=== PATIENT | male | born 1970 | race Caucasian/White ===

== ENCOUNTER 2023-04-15 08:23 | Emergency (ER) | payer OTHER ==
[2023-04-15] MEDS ORDERED: Iopamidol 370 76% 100 ML VIAL ONE (15:52)
== END 2023-04-15 10:51 | disposition home or self-care (01) ==
LOC: MADERS 08:23
DX: G89.18 Other acute postprocedural pain (principal); R14.0 Abdominal distension (gaseous); F17.210 Nicotine dependence, cigarettes, uncomplicated
CPT/HCPCS: 74177; Q9967

== ENCOUNTER 2024-05-05 09:52 | Emergency (ER) | payer OTHER | END 2024-05-05 11:51 | disposition home or self-care (01) | LOC: MADERS 09:52 | DX: M25.571 Pain in right ankle and joints of right foot (principal); F17.210 Nicotine dependence, cigarettes, uncomplicated; J44.9 Chronic obstructive pulmonary disease, unspecified ==